=== PATIENT | female | born 1945 | race Two or more races ===

== ENCOUNTER 2017-01-11 11:08 | Emergency (ER) | payer MEDICARE ==
[~2017-01-11] VITALS: Ht 149.9 cm; Wt 64.8 kg
[~2017-01-11 11:08] MED LIST: ATOR20TA42; BUPR-86 OR; ENAL5TAB98 PO; FLOV50AE IN; GABA100C4 PO; HYDR-2768 PO; LORA0.5T PO; LORT5TAB PO; PREV30CA36; PRIL40CA PO; SIMV10TA OR; SULF500EC
[2017-01-11 11:13] VITALS: BP 120/84; PULSE 95; RESP 16; TEMP 98.1; O2SAT 95
[2017-01-11] MEDS ORDERED: CALC500C2 CHEW (11:32)
[2017-01-11] MEDS ORDERED: SULF500T3 PO (11:32)
[2017-01-11] MEDS ORDERED: AZIT250T3 PO (11:32)
[2017-01-11] MEDS ORDERED: OMEP40CA2 PO (11:32)
[2017-01-11] MEDS ORDERED: FLUT50SP EACH NARE (11:32)
[2017-01-11] MEDS ORDERED: BENZ100 PO (11:32)
[2017-01-11] MEDS ORDERED: DIAZ10TA PO (11:32)
[2017-01-11] MEDS ORDERED: HYDR25TA5 PO (11:32)
[2017-01-11] MEDS ORDERED: ENAL5TAB PO (11:32)
[2017-01-11] MEDS ORDERED: CYAN1TAB27 SL (11:32)
[2017-01-11] MEDS ORDERED: NEUR300C PO (11:32)
[2017-01-11 11:35] VITALS: O2SAT 95
--- NOTE | 2017-01-11 11:41 | PD ---
HPI Chief Complaint: Cold / Flu Symptoms Time Seen by Provider: 11:32 Travel History International Travel<30 days: No Contact w/Intl Traveler<30days: No Traveled to known affect area: No History of Present Illness HPI 71-year-old female presents to the emergency room for evaluation of a mildly productive cough for the past 5 days. Patient states symptoms started on Sunday. At onset she also had a sore throat. She was taking Mucinex without significant relief in symptoms. Then she went to her primary care physician on Sunday (2 days ago) and was given a prescription for Tessalon Perles and azithromycin. She states she has been taking medications as prescribed but feels worse and more wheezy today. Cough is productive of white sputum. Patient has been coughing so hard she has developed back pain. She denies earache and congestion. She has associated nausea and chills but no vomiting or fever. Patient denies lung disease. History of hypertension. PFSH Past Medical History Anxiety: Yes Heart Rhythm Problems: No Cardiac Catheterization: No Cardiovascular Problems: Yes High Cholesterol: Yes Congestive Heart Failure: No Diabetes: No Diminished Hearing: No GERD: Yes Hypertension: Yes Neurologic: Yes (Neuropathy ) Immunizations Current: No Myocardial Infarction: No Triglycerides - High: Yes Tetanus Vaccination: > 5 Years Influenza Vaccination: Yes ?: Not Menopausal: Yes Past Surgical History Section: Yes (X's 2) Cholecystectomy: Yes Coronary Artery Bypass Graft: No Gynecologic Surgery: Yes (SIMPLE CYCSTIC BREAST ASPIRATIONS) Joint Replacement: Yes (Lt. knee ) Other Surgery: Yes (LASER SURG ON VEINS LEFT CALF) Social History Alcohol Use: No Tobacco Use: No Substance Use: No Allergies-Medications (Allergen,Severity, Reaction): Coded Allergies: Percocet (Verified Adverse Reaction, Severe, Vomiting, 01/11/17) Reported Meds & Prescriptions Reported Meds & Active Scripts Active Prednisone 20 Mg Tab 40 Mg PO DAILY Take 40 mg (2 tablets) daily for 5 days Promethazine-Codeine Liq 6.25-10 Mg/5 Ml Syrp 5 Ml PO Q6H PRN Reported Tessalon Perles (Benzonatate) 100 Mg Cap 200 Mg PO TID PRN Azithromycin 250 Mg Tab 250 Mg PO DIRECTED Take 2 tabs (500 mg) on day 1 then 1 tab daily x 4 days. Calcium (Calcium Carbonate-Cholecalciferol) 1,250-100 Mg-Unit Chew 2 Tab CHEW DAILY Vitamin B-12 5,000 Mcg Tab Sl (Cyanocobalamin/Cobamamide) 1 Each Tab.subl 1 Tab SL DAILY Diazepam 10 Mg Tab 10 Mg PO BID PRN Fluticasone Nasal [place] 50 Mcg/Act Naspr 50 Mcg EACH NARE BID 50 mcg/spray Neurontin (Gabapentin) 300 Mg Cap 300 Mg PO DAILY Sulfasalazine 500 Mg Tab 500 Mg PO BID Omeprazole 40 Mg Cap 40 Mg PO DAILY Hydrochlorothiazide 25 Mg Tab 25 Mg PO DAILY Enalapril (Enalapril Maleate) 5 Mg Tab 5 Mg PO DAILY Review of Systems Except as stated in HPI: all other systems reviewed are Neg Physical Exam Narrative GENERAL: Well-nourished, well-developed female in no acute distress. Afebrile. Ambulatory. SKIN: Focused skin assessment warm/dry. HEAD: Normocephalic. EYES: No scleral icterus. No injection or drainage. EARS: Bilateral pinnae and external canals appear within normal limits. Bilateral tympanic membranes without erythema, dullness or perforation. NECK: Supple, trachea midline. No JVD or lymphadenopathy. CARDIOVASCULAR: Regular rate and rhythm without murmurs, gallops, or rubs. RESPIRATORY: Breath sounds equal bilaterally. No accessory muscle use. Coarse lung sounds bilaterally with wheezes. PSYCHIATRIC: No delusional thought processes. No hallucinations. Data Data Last Documented VS Vital Signs Date Time Temp Pulse Resp B/P Pulse Ox O2 Delivery O2 Flow Rate FiO2 01/11/17 16:08 128/66 01/11/17 13:55 86 18 96 Room Air 01/11/17 11:13 98.1 Orders Oximetry (01/11/17 11:30) Chest, Pa & Lat (01/11/17 11:30) Albuterol-Ipratropium Neb (Duoneb Neb) (01/11/17 11:30) Complete Blood Count With Diff (01/11/17 13:09) Comprehensive Metabolic Panel (01/11/17 13:09) Iv Access Insert/Monitor (01/11/17 13:09) Ecg Monitoring (01/11/17 13:09) Oxygen Administration (01/11/17 13:09) Sodium Chloride 0.9% Flush (Ns Flush) (01/11/17 13:15) Methylprednisolone So Succ Inj (Solumedr (01/11/17 13:15) B-Type Natriuretic Peptide (01/11/17 13:09) Sodium Chlor 0.9% 1000 Ml Inj (Ns 1000 M (01/11/17 14:00) Potassium Chloride (Kcl) (01/11/17 14:00) Guaifen-Dm 200-20 Mg/10 Ml Liq (Robituss (01/11/17 15:00) Labs Laboratory Tests Test 01/11/17 13:20 White Blood Count 4.0 TH/MM3 Red Blood Count 4.23 MIL/MM3 Hemoglobin 11.6 GM/DL Hematocrit 35.6 % Mean Corpuscular Volume 84.1 FL Mean Corpuscular Hemoglobin 27.4 PG Mean Corpuscular Hemoglobin 32.6 % Concent Red Cell Distribution Width 14.6 % Platelet Count 302 TH/MM3 Mean Platelet Volume 7.7 FL Neutrophils (%) (Auto) 47.6 % Lymphocytes (%) (Auto) 37.0 % Monocytes (%) (Auto) 12.8 % Eosinophils (%) (Auto) 0.5 % Basophils (%) (Auto) 2.1 % Neutrophils # (Auto) 1.9 TH/MM3 Lymphocytes # (Auto) 1.5 TH/MM3 Monocytes # (Auto) 0.5 TH/MM3 Eosinophils # (Auto) 0.0 TH/MM3 Basophils # (Auto) 0.1 TH/MM3 CBC Comment DIFF FINAL Differential Comment Sodium Level 129 MEQ/L Potassium Level 3.0 MEQ/L Chloride Level 94 MEQ/L Carbon Dioxide Level 23.2 MEQ/L Anion Gap 12 MEQ/L Blood Urea Nitrogen 25 MG/DL Creatinine 1.40 MG/DL Estimat Glomerular Filtration 37 ML/MIN Rate Random Glucose 124 MG/DL Calcium Level 8.9 MG/DL Total Bilirubin 0.2 MG/DL Aspartate Amino Transf 41 U/L (AST/SGOT) Alanine Aminotransferase 40 U/L (ALT/SGPT) Alkaline Phosphatase 69 U/L B-Type Natriuretic Peptide 17 PG/ML Total Protein 8.0 GM/DL Albumin 3.9 GM/DL MDM Medical Decision Making Medical Screen Exam Complete: Yes Emergency Medical Condition: Yes Medical Record Reviewed: Yes Differential Diagnosis Pneumonia versus failed outpatient treatment versus bronchitis versus upper respiratory symptoms Narrative Course 71-year-old female presents to the emergency room for evaluation of cough for the past 5 days. Patient went to her primary care physician 2 days ago and got a prescription for azithromycin and Tessalon Perles. States since then she has been feeling worse with increased cough and more fatigued. She also has a loss of appetite. Patient denies history of fever. Physical exam reveals bilateral coarse lung sounds with wheezes. Otherwise unremarkable. Vital signs stable. Patient given 3 duo nebs in the emergency room. Chest x-ray is negative for pneumonia. CBC is unremarkable. CMP shows hyponatremia, hypokalemia, hypochloremia, and acute kidney injury. Likely due to dehydration and side effects from medication. Patient states she feels weak and would like to stay the night for rehydration. I spoke to the [facility] doctor, Dr. Anthony, who does not see indication for admission at this time. Patient was told to push fluids at home and follow up with her primary care physician in the morning. She was informed of the risks and benefits of admission including increased risk for pneumonia and blood clot. She'll be discharged with prescriptions for prednisone and promethazine with codeine. Patient understands and agrees to plan. Diagnosis Primary Impression: Acute bronchitis Qualified Code: J20.9 - Acute bronchitis, unspecified organism Referrals: Primary Care Physician Patient Instructions: Acute Bronchitis (ED), General Instructions Additional Instructions: Rest and drink plenty of fluids. Take steroids as directed, until gone. Use cough syrup as directed, as needed for cough at night. Follow-up with a primary care physician. Return to the emergency room for worsening symptoms. Scripts Prednisone 20 Mg Tab40 Mg PO DAILY #10 TAB Ref 0 Take 40 mg (2 tablets) daily for 5 days Prov:Eugene Alba MD 01/11/17 Promethazine-Codeine Liq 6.25-10 Mg/5 Ml Syrp5 Ml PO Q6H PRN (COUGH AND/OR COLD SYMPTOMS) #100 ML Ref 0 Prov:Eugene Alba MD 01/11/17 Disposition: 01 DISCHARGE HOME Condition: Stable Loren Cali Jan 11, 2017 11:41
[2017-01-11] MEDS: RESP: ALBUTEROL 2.5 MG/IPRATROPIUM 0.5 MG NEB (SCH) INH ×2 (11:44→11:45)
[2017-01-11] MEDS ORDERED: methylPREDNISolone SOD SUCC 125 MG/2 ML VIAL IVP ONE (13:15)
[2017-01-11] MEDS ORDERED: SODIUM CHLORIDE 0.9% FLUSH 10 ML FLUSH IVF PRN (13:15)
[2017-01-11 13:32] LABS: AUTOMATED NEUTROPHIL # 1.9 TH/MM3 (1.8-7.7); BASOPHIL # 0.1 TH/MM3 (0-0.2); BASOPHIL % 2.1 % (0.0-2.0); EOSINOPHIL % 0.5 % (0.0-4.0); HEMATOCRIT 35.6 % (35.0-46.0); HEMO FLAGS DIFF FINAL; LYMPHOCYTE # 1.5 TH/MM3 (1.0-4.8); MEAN CELL VOLUME 84.1 FL (80.0-100.0); MEAN CORPUSCULAR HEMOGLOBIN 27.4 PG (27.0-34.0); MEAN CORPUSCULAR HGB CONC 32.6 % (32.0-36.0); MONO % 12.8 % (0.0-8.0); NEUT % 47.6 % (16.0-70.0); PLATELET COUNT 302 TH/MM3 (150-450); RED BLOOD COUNT 4.23 MIL/MM3 (4.00-5.30); RED CELL DISTRIBUTION WIDTH 14.6 % (11.6-17.2)
[2017-01-11 13:37] LABS: CHLORIDE 94 MEQ/L (98-107); SODIUM (NA) 129 MEQ/L (136-145)
[2017-01-11 13:41] LABS: ANION GAP 12 MEQ/L (5-15); BICARBONATE 23.2 MEQ/L (21.0-32.0); BLOOD UREA NITROGEN 25 MG/DL (7-18)
[2017-01-11 13:44] LABS: ALT (GPT) 40 U/L (10-53); AST (GOT) 41 U/L (15-37); GLOMERULAR FILTRATION RATE 37 ML/MIN (>89)
[2017-01-11 13:46] LABS: TOTAL BILIRUBIN ADULT 0.2 MG/DL (0.2-1.0)
[2017-01-11 13:47] LABS: ALKALINE PHOSPHATASE 69 U/L (45-117)
[2017-01-11 13:55] VITALS: BP 117/65; PULSE 86; RESP 18; O2SAT 96
[2017-01-11] MEDS ORDERED: POTASSIUM CHLORIDE 20 MEQ CONTROLLED RELEASE TAB PO ONE (14:00)
[2017-01-11] MEDS ORDERED: SODIUM CHLOR 0.9% 1000 ML INJ 1,000 ML IV ONE (14:00)
--- NOTE | 2017-01-11 14:24 | RADHPO ---
EXAM DATE/TIME: 01/11/2017 13:25 [facility] COMPARISON: No previous studies available for comparison. INDICATIONS : Patient has had productive cough since Sunday. Today she has started wheezing. MEDICAL HISTORY : Hypertension. SURGICAL HISTORY : None. ENCOUNTER: Initial ACUITY: 2 days PAIN SCORE: 0/10 LOCATION: Bilateral chest FINDINGS: PA and lateral views of the chest. The lungs are clear. Cardiomediastinal silhouette within normal li mits. No evidence of pleural effusion or pneumothorax. Surgical clips in the right upper quadrant of the abdomen. High riding right humeral head indicating rotator cuff insufficiency. CONCLUSION: No acute cardiopulmonary disease identified. Loc Gastelum MD on January 11, 2017 at 14:21 Board Certified Radiologist. This report was verified electronically.
[2017-01-11] MEDS ORDERED: guaiFENesin/DEXTROMETHORPHAN 200 MG/20 MG/10 ML CUP PO ONE (15:00)
[2017-01-11] MEDS ORDERED: PROM6.256 PO (15:13)
[2017-01-11] MEDS ORDERED: PRED20 PO (15:13)
[2017-01-11 16:08] VITALS: BP 128/66
== END 2017-01-11 16:12 | disposition home or self-care (01) ==
LOC: PHEFT 11:08
DX: J20.9 Acute bronchitis, unspecified (principal); I10 Essential (primary) hypertension; Z79.899 Other long term (current) drug therapy
CPT/HCPCS: 71020; 80053; 83880; 85025; 94640; 94664; 96361; 96374; 99284; J2930; J7030